=== PATIENT | male | born 1995 | race Hispanic/Latino ===

== ENCOUNTER 2020-09-05 12:16 | Emergency (ER) | payer OTHER ==
[~2020-09-05] VITALS: Ht 160 cm; Wt 62.0 kg
[2020-09-05 12:17] VITALS: BP 141/86
[2020-09-05 13:05] LABS: HEMATOCRIT 44.3 % (42.0-52.0); HEMOGLOBIN 15.3 g/dl (13.5-17.5); MEAN CORPUSCULAR HEMOGLOBIN 29.4 pg (27.0-33.0); MEAN CORPUSCULAR HGB CONC 34.5 g/dl (32.0-36.5); PLATELET COUNT, AUTOMATED 317 10^3/uL (150-450); RED BLOOD COUNT 5.21 10^6/uL (4.30-6.10); WHITE BLOOD COUNT 6.1 10^3/uL (4.0-10.0)
[2020-09-05 13:29] LABS: ALBUMIN 4.8 GM/DL (3.2-5.2); ALT/SGPT 27 U/L (12-78); BILIRUBIN,TOTAL 1.1 MG/DL (0.2-1.0); BLOOD UREA NITROGEN 20 MG/DL (7-18); CALCIUM LEVEL 10.1 MG/DL (8.5-10.1); CARBON DIOXIDE LEVEL 29 MEQ/L (21-32); CHLORIDE LEVEL 102 MEQ/L (98-107); CREATININE FOR GFR 1.01 MG/DL (0.70-1.30); GLOMERULAR FILTRATION RATE > 60.0 (>60); GLUCOSE, FASTING 95 MG/DL (70-100); POTASSIUM SERUM 4.5 MEQ/L (3.5-5.1); SODIUM LEVEL 139 MEQ/L (136-145); TOTAL PROTEIN 7.8 GM/DL (6.4-8.2)
[2020-09-05 13:36] LABS: INR 1.07; PROTHROMBIN TIME 14.1 SECONDS (12.5-14.3)
[2020-09-05] MEDS ORDERED: PROC1AER16 PR (13:46)
== END 2020-09-05 13:54 | disposition home or self-care (01) ==
LOC: M ED 12:16
DX: K64.9 Unspecified hemorrhoids (principal); F17.200 Nicotine dependence, unspecified, uncomplicated

== ENCOUNTER 2020-11-13 06:02 | Day surgery (SDC) | payer OTHER ==
[~2020-11-13] VITALS: Ht 160 cm; Wt 61.3 kg
[~2020-11-13 06:02] MED LIST: PROC1AER16 PR
[2020-11-13] MEDS ORDERED: LR 1,000 ML IV ONE (07:00)
[2020-11-13] MEDS ORDERED: BUPIVACAINE HCL 0.5% 30 ML VIAL As Ordered ONE (07:06)
[2020-11-13] MEDS ORDERED: ONDANSETRON 4MG/2ML VIAL As Ordered ONE (07:21)
[2020-11-13] MEDS ORDERED: MIDAZOLAM INJ 2MG/2ML VIAL (J2250 PER 1MG) As Ordered ONE (07:21)
[2020-11-13] MEDS ORDERED: fentaNYL 100 MCG/2 ML INJECTION (J3010) As Ordered ONE (07:21)
[2020-11-13] MEDS ORDERED: LIDOCAINE 2% 100MG/5ML SDV (FOR ANES.) As Ordered ONE (07:21)
[2020-11-13] MEDS ORDERED: propofoL 500 MG/50 ML VIAL As Ordered ONE (07:21)
[2020-11-13] MEDS ORDERED: BUPIVACAINE LIPOSOME/PF 1.3% 20ML VIAL (13.3MG/ML)(EXPAREL)(C9290 PER1MG) As Ordered ONE (08:18)
[2020-11-13] MEDS ORDERED: IBUPROFEN 600MG TAB PO SCH (09:00)
[2020-11-13] MEDS ORDERED: ONDANSETRON 4MG/2ML VIAL IV PRN (09:30)
[2020-11-13] MEDS ORDERED: LR 1,000 ML IV SCH (09:30)
[2020-11-13] MEDS ORDERED: fentaNYL 100 MCG/2 ML INJECTION (J3010) IV PRN (09:30)
[2020-11-13] MEDS ORDERED: METOCLOPRAMIDE INJ 10MG/2ML VIAL (J2765 PER 1) IV PRN (09:30)
[2020-11-13] MEDS ORDERED: PERCOCET 5MG/325MG TAB PO PRN ×2 (09:30→09:50)
[2020-11-13] MEDS ORDERED: COLA100C5 PO (09:37)
[2020-11-13] MEDS ORDERED: IBUP-1022 PO (09:37)
[2020-11-13 10:03] VITALS: BP 134/79
--- NOTE | 2020-11-13 11:44 | RO ---
OPERATIVE NOTE DATE OF OPERATION: 11/13/2020 PREOPERATIVE DIAGNOSIS: Mixed hemorrhoids. POSTOPERATIVE DIAGNOSIS: Mixed hemorrhoids. PROCEDURE PERFORMED: Hemorrhoidectomy. SURGEON: Jaylon Navarro MD TELEVISION ANALYZER: ANESTHESIA: Spinal. 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 He has several small external hemorrhoids communicating with internal components. He has had rare bleeding, but more frequent episodes of inflammation and discomfort. He is now for a hemorrhoidectomy. OPERATIVE PROCEDURE: The patient was brought to the operating room. He had a spinal anesthetic placed. He was rolled into a prone position on the operating table and placed in a jackknife position. His pressure points were padded. The buttocks were spread with tape. The perineum was prepped and draped in a sterile fashion. Examination confirmed mixed internal and external hemorrhoidal bundles in a right posterior and left lateral position. There was a smaller hemorrhoidal bundle in a posterior midline position where the external component predominated and there was a small external hemorrhoid anteriorly just to the right of the midline. I elected to proceed with excision of the right posterior bundle first. An apical suture of 3-0 Vicryl was placed. The hemorrhoidal tissues were incised using the needle tip cautery in an hourglass fashion, narrowing at the dentate line. Beginning at the external component, the tissues were elevated off of the underlying internal sphincter muscle using the cautery. Additional vascular tissues were removed from beneath the adjacent mucosa. The dissection was carried up to the apical suture. The tissues were set aside. Ultimately, all of the hemorrhoidal tissues removed were combined as a single specimen for permanent pathology. The wound bed was inspected and some additional vascular tissue was excised. Hemostasis was ensured with the cautery. The 3-0 Vicryl was continued out to the dentate line as a running suture to close the wound. The anoderm distal to the dentate line was closed with interrupted simple sutures of 3-0 chromic. The left lateral hemorrhoid was then addressed similarly and closed in similar fashion. The small posterior midline hemorrhoid was also excised and sutured similarly. I elected not to excise the anterior small hemorrhoid given that 3 areas had already been addressed. 20 ml of 0.5% Marcaine were mixed with 20 ml of Exparel and this was infiltrated widely around the perianal area and along the area of the suture lines. The wounds were inspected for hemostasis, which was found to be excellent. The anus was covered with Adaptic and a fluffed gauze pressure dressing held in place with tape. The patient tolerated the procedure well without apparent complication. He was returned to a supine positin on the stretcher and transported to the recovery room in stable condition.
[2020-11-13] MEDS ORDERED: DOCUSATE SODIUM 100MG CAPSULE PO SCH (21:00)
== END 2020-11-13 10:47 | disposition home or self-care (01) ==
LOC: M SDC 06:02
PROVIDERS: ATTEND Surgery
DX: K64.8 Other hemorrhoids (principal); M54.9 Dorsalgia, unspecified; F17.210 Nicotine dependence, cigarettes, uncomplicated
CPT/HCPCS: 46260; 88304; C9290; J2250; J2405; J3010